=== PATIENT | male | born 1955 | race Caucasian/White ===

== ENCOUNTER 2019-11-24 09:34 | Outpatient (CLI) | payer OTHER ==
--- NOTE | 2019-11-24 12:13 | RAD ---
Fluoroscopically guided left hip joint aspiration and arthrogram: 11/24/2019 HISTORY: 64-year-old male with septic left hip TECHNIQUE: Signed informed consent obtained. Left groin prepared and draped in usual sterile fashion. 25-gauge n eedle used to apply buffered lidocaine superficially. Under brief, intermittent fluoroscopy, a 20-gauge, 6 inch spinal needle was advanced, targeting the lateral edge of the subcapital region of t he proximal femur. A total of 0.1 mL of blood-tinged fluid was aspirated from the intracapsular space, and placed in a vial. Next, 5 mL of nonbacteriostatic water was injected into the intracapsula r space, and was aspirated. 4.5 mL of this dilute solution was placed in a second vial. 2 mL of Isovue was injected in order to demonstrate that the needle tip was indeed in the intracapsular space . Needle was removed. Patient tolerated procedure well. No complications. FINDINGS: Fluoroscopic spot images demonstrate needle tip at lateral subcapital region of the left proximal fem ur. Postinjection images demonstrate contrast material within the intracapsular space. IMPRESSION: Technically successful left hip joint aspiration. 0.1 mL of joint fluid, then 4.5 mL of dilated joint fluid, in 2 separate vials, sent to laboratory fo r culture and sensitivity.
[2019-11-24 13:00] LABS: Body Fluid Source Synovial Fluid; Clarity Hazy (Clear); RBC Count-Automated (BF) 2259 /cu.mm; WBC/Nucleated-Auto (BF) 102 uL
[2019-11-24 13:01] LABS: BF Color Red
[2019-11-24 13:04] LABS: Tube # 2
[2019-11-24 13:08] LABS: BF Segmented Neutrophils 25 %; Cell Count Non Hematic 38 %; Eosinophils 4 %; Lymphocytes 33 %
== END 2019-11-24 09:35 | disposition home or self-care (01) ==
LOC: RAD 09:34
PROVIDERS: ATTEND Orthopaedic Surgery
DX: T84.84XS Pain due to internal orthopedic prosthetic devices, implants and grafts, sequela (principal)
CPT/HCPCS: 20610; 77002; 85060; 87070; 87205; 89051